=== PATIENT | female | born 1965 | race Caucasian/White ===

== ENCOUNTER 2016-07-11 08:12 | Emergency (ER) | payer OTHER ==
[~2016-07-11] VITALS: Ht 165.1 cm; Wt 68.0 kg
[~2016-07-11 08:12] MED LIST: AZIT500T2 PO; CEPH500C PO; COLA100C2 OR; IBUP400T OR; MUCI600T34 PO; PERC5TAB8 OR; PERC7.5T8 OR; PRED20TA PO; PROA1AER INH; WELBUTRIN PO; [UNRECOGNIZED DRUG - OTHER] PO
--- NOTE | 2016-07-11 09:45 | REP ---
LUMBAR SPINE SERIES: Five views. HISTORY: Injury in a fall. FINDINGS: Lumbar vertebral body heights are preserved. No fracture or collapse is seen. Pedicles and posterior elements appear intact. There is mild degenerative narrowing of the L4-5 disc and there is mild discogenic spurring at L3-4 and L2-3. Facet joint narrowing is present bilaterally at L5-S1. Minimal SI joint spurring is seen bilaterally. Psoas margins are symmetric. The bowel gas pattern is unremarkable. IMPRESSION: No traumatic abnormality noted. Mild degenerative disc and facet changes. Signed by Michael Pimentel MD 07/11/2016 01:56 P
[2016-07-11] MEDS ORDERED: TYLE325T5 PO (10:05)
[2016-07-11 10:12] VITALS: BP 111/67
== END 2016-07-11 10:15 | disposition home or self-care (01) ==
LOC: M ED 10:01
DX: S30.0XXA Contusion of lower back and pelvis, initial encounter (principal); S50.01XA Contusion of right elbow, initial encounter; W10.8XXA Fall (on) (from) other stairs and steps, initial encounter; Y92.099 Unspecified place in other non-institutional residence as the place of occurrence of the external cause; Y93.01 Activity, walking, marching and hiking; Y99.9 Unspecified external cause status

== ENCOUNTER 2016-09-28 20:48 | Inpatient (IN) | payer OTHER ==
[~2016-09-28] VITALS: Ht 165.1 cm; Wt 69.0 kg
[~2016-09-28 20:48] MED LIST changes: +TYLE325T5 PO
[2016-09-28] MEDS ORDERED: PROA1AER INH (21:00)
[2016-09-28] MEDS ORDERED: PRED20TA PO ×2 (21:00→23:50)
[2016-09-28] MEDS ORDERED: CEFU250T PO (21:00)
[2016-09-28] MEDS ORDERED: dexameTHASONE 20 MG/5 ML VIAL (J1100) IV ONE (21:30)
[2016-09-28] MEDS ORDERED: MAG SULF 1GM/100ML (MAG RUN) 1 GM in APPROPRIATE DILUENT 1 EA IV ONE ×4 (21:30)
[2016-09-28] MEDS: LEVALBUTEROL 1.25 MG/0.5 ML CONCENTRATE NEB INH SCH ×3 (21:57→22:04)
[2016-09-28 22:06] LABS: BASO % 0.2 % (0.0-1.0); EOS % 0.3 % (0.0-3.0); LARGE UNSTAINED CELL % 0.5 % (0.0-4.0); LYMPH # 0.4 K/mm3 (1.5-4.5); MEAN CORPUSCULAR HEMOGLOBIN 33.4 pg (27.0-33.0); MEAN CORPUSCULAR HGB CONC 34.9 g/dl (32.0-36.5); MEAN CORPUSCULAR VOLUME 95.8 fl (80.0-96.0); MONO # 0.3 K/mm3 (0.0-0.8); NEUTROPHILS # 7.1 K/mm3 (1.8-7.7); PLATELET COUNT, AUTOMATED 179 k/mm3 (150-450); WHITE BLOOD COUNT 7.8 K/mm3 (4.0-10.0)
[2016-09-28 22:26] LABS: ANION GAP 8 MEQ/L (8-16); BLOOD UREA NITROGEN 7 MG/DL (7-18); CARBON DIOXIDE LEVEL 26 MEQ/L (21-32); CHLORIDE LEVEL 104 MEQ/L (98-107); CREATININE FOR GFR 0.65 MG/DL (0.55-1.02); GLOMERULAR FILTRATION RATE > 60.0 (>51); GLUCOSE, FASTING 121 MG/DL (70-105); POTASSIUM SERUM 3.9 MEQ/L (3.5-5.1); SODIUM LEVEL 138 MEQ/L (136-145)
[2016-09-28 23:08] LABS: ABG BASE EXCESS -3.5 (-2.0-2.0); ABG HCO3 19.8 MEQ/L (22.0-26.0); ABG PARTIAL PRESSURE CO2 31.3 mmHg (35.0-45.0); ABG PARTIAL PRESSURE O2 71.8 mmHg (75.0-100.0); ABG STANDARD HCO3 21.5 MEQ/L (22.0-26.0); ABG TOTAL CO2 20.8 MEQ/L (22.0-29.0)
[2016-09-28] MEDS: IPRATROPIUM 0.5MG/ALBUTEROL 2.5MG INH SOL UD 3ML (DUONEB)(J7620) NEB SCH ×3 (23:27→23:46)
[2016-09-28] MEDS ORDERED: TYLE650T35 PO (23:48)
[2016-09-28] MEDS ORDERED: CEFT500T3 PO (23:50)
[2016-09-29] MEDS ORDERED: IPRATROPIUM 0.5MG/ALBUTEROL 2.5MG INH SOL UD 3ML (DUONEB)(J7620) NEB PRN (00:15)
[2016-09-29] MEDS ORDERED: ALBUTEROL 90 MCG/ACT 8GM HFA INHALER INH PRN (00:15)
[2016-09-29] MEDS ORDERED: ONDANSETRON 4MG/2ML VIAL (J2405) IV PRN (00:30)
[2016-09-29 01:11] VITALS: BP 112/57
--- NOTE | 2016-09-29 01:12 | REP ---
Clinical: Dyspnea . Comparison: 01/13/2016 . Technique: PA and lateral. Findings: The mediastinum and cardiac silhouette are normal. The lung asher demonstrate chronic-appearing changes without acute consolidation, effusion, or pneumothorax. The skeletal structures are intact and normal. Impression: Chronic-appearing changes. No acute cardiopulmonary process. If the patient remains symptomatic consider chest CT for further investigation. Signed by Mic Rodriguez MD 09/29/2016 01:04 A
[2016-09-29] MEDS: IPRATROPIUM 0.5MG/ALBUTEROL 2.5MG INH SOL UD 3ML (DUONEB)(J7620) NEB SCH ×4 (01:58→19:36)
--- NOTE | 2016-09-29 02:19 | HPE ---
DATE OF ADMISSION: 09/29/2016 PRIMARY CARE PROVIDER: Mercedes Sotelo. CHIEF COMPLAINT: Shortness of breath. HISTORY OF PRESENT ILLNESS: The patient is a 51-year-old female who reports over the last 2 weeks she has had progressively worsening dyspnea on exertion with increased cough and increased sputum production. 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 Denies associated chest pain, lightheadedness, dizziness, nausea, vomiting, fever, chills or passing out. She is an active smoker, but she has been unable to smoke for the last 2 days secondary to her shortness of breath. There is 35 pack-year history. The patient was here approximately 1 year ago with almost identical presentation. She states at the time it was suspected she had undiagnosed chronic obstructive pulmonary disease (COPD) and it was recommended upon discharge to have outpatient pulmonary function testing (PFT); however, she admits to me that she never had this done. PAST MEDICAL HISTORY: Chronic neck pain. ALLERGIES: ASPIRIN, tinnitus as a child. PAST SURGICAL HISTORY: 1. Colonoscopy. 2. Herniated disc decompression and fusion of C5-C6. 3. Hysterectomy. HOME MEDICATIONS: - albuterol metered-dose inhaler (MDI) as needed - Valtrex as needed SOCIAL HISTORY: She lives with her daughter, who accompanies her in the emergency room, who is also a smoker and lives with her. She is FULL CODE. She is an active smoker. She denies alcohol or illicit drug use. PHYSICAL EXAMINATION: VITAL SIGNS: Temperature 99.8, pulse 108, respiratory rate 20, blood pressure 100/50, oxygen saturation 90% on 3 liters nasal cannula. GENERAL: She is a middle aged female sitting up in a stretcher using some mild accessory muscles, but is able to speak in complete sentences. She does not appear to be in any acute distress. HEENT: Cranial nerves II-XII are grossly intact. She has moist mucous membranes. She does have pursed lips. CARDIOVASCULAR EXAMINATION: S1, S2, she is tachycardic. No additional heart sounds appreciated. RESPIRATORY EXAMINATION: She has a diffuse end-expiratory wheeze and some transmitted upper airway sounds to go with it. ABDOMINAL EXAMINATION: Bowel sounds are present. The abdomen is soft. EXTREMITIES: No clubbing, cyanosis or edema. LABORATORY STUDIES: WBC 7.8, hemoglobin 14.8, hematocrit 42.3, platelet count 179. Chemistry panel: Sodium 138, potassium 3.9, chloride 104, bicarbonate 26, BUN 7, creatinine 0.6. ABG pH 7.4, pCO2 31.3, pO2 is 71.8. Chest x-ray there is no official read; however, it appears to be hyperinflated with flattened diaphragm, evidence of air trapping. No obvious infiltrates. ASSESSMENT AND PLAN: This is a 51-year-old female with acute hypoxic respiratory failure. 1. Acute hypoxic respiratory failure. Likely to be secondary to undiagnosed chronic obstructive pulmonary disease (COPD). The patient has improved after nebulizer treatments, magnesium and steroids in the emergency room. She will be admitted to the medical/surgical service and will continue with Solu-Medrol 80 mg intravenously (IV) every 6 hours. I will also provide her with DuoNeb standing and as needed and guaifenesin. This was the regimen she did benefit from greatly approximately 1 year ago. I will also check a respiratory PCR panel. I do not have significant suspicion for bacterial pneumonia given there is no fever, no leukocytosis, no radiographic findings suggest this either. for a potential pulmonary embolus (PE), although I feel this is less likely. 2. Deep venous thrombosis (DVT) prophylaxis. The patient will be on Lovenox. DISPOSITION: The patient is admitted to medical/surgical floor to Dr. Montez's service who will continue following the patient at 7 a.m. She can likely be discharged once she is able to ambulate and maintain at greater than on room air. I suspect . She has been advised on tobacco cessation.
[2016-09-29 06:00] VITALS: BP 108/62
[2016-09-29] MEDS: methylPREDNISolone INJ 125 MG/2 ML VIAL (J2930) IV SCH ×2 (06:11→11:30)
[2016-09-29] MEDS: ENOXAPARIN 40 MG/0.4 ML SYRINGE (J1650) SC SCH (11:30)
[2016-09-29] MEDS: guaiFENesin SYRUP 200 MG/10 ML UDC PO PRN ×3 (12:08→23:53)
[2016-09-29 14:00] VITALS: BP 132/78
[2016-09-29 19:36] VITALS: O2SAT 92
[2016-09-29 22:00] VITALS: BP 122/68
[2016-09-29] MEDS: methylPREDNISolone INJ 40 MG/1 ML VIAL (J2920) IV SCH (23:53)
[2016-09-30] MEDS: IPRATROPIUM 0.5MG/ALBUTEROL 2.5MG INH SOL UD 3ML (DUONEB)(J7620) NEB SCH ×4 (00:18→20:45)
[2016-09-30 06:00] VITALS: BP 105/70
[2016-09-30 06:18] LABS: MEAN CORPUSCULAR HEMOGLOBIN 32.7 pg (27.0-33.0); MEAN CORPUSCULAR HGB CONC 33.9 g/dl (32.0-36.5); MEAN CORPUSCULAR VOLUME 96.4 fl (80.0-96.0); RED CELL DISTRIBUTION WIDTH 12.8 % (11.5-14.5); WHITE BLOOD COUNT 14.1 K/mm3 (4.0-10.0)
[2016-09-30 06:37] LABS: ANION GAP 4 MEQ/L (8-16); BLOOD UREA NITROGEN 10 MG/DL (7-18); CALCIUM LEVEL 8.1 MG/DL (8.5-10.1); CARBON DIOXIDE LEVEL 30 MEQ/L (21-32); CHLORIDE LEVEL 107 MEQ/L (98-107); CREATININE FOR GFR 0.62 MG/DL (0.55-1.02); GLOMERULAR FILTRATION RATE > 60.0 (>51); GLUCOSE, FASTING 137 MG/DL (70-105); POTASSIUM SERUM 4.5 MEQ/L (3.5-5.1); SODIUM LEVEL 141 MEQ/L (136-145)
[2016-09-30] MEDS: ENOXAPARIN 40 MG/0.4 ML SYRINGE (J1650) SC SCH (09:05)
[2016-09-30] MEDS: methylPREDNISolone INJ 40 MG/1 ML VIAL (J2920) IV SCH ×2 (11:46→23:48)
--- NOTE | 2016-09-30 12:17 | IPNPDOC ---
Subjective Date Seen The patient was seen on 09/30/16. Subjective Chief Complaint/HPI The patient is a 51-year-old female admitted with a reason for visit of Shortness Of Breath. Events since last encounter Still short of breath, wheezing, working with nursing to wean oxygen and increase activity, tolerating diet, no chest pain Constitutional: Denies: Chills, Fever Pulmonary: Reports: Cough, Denies: Dyspnea Cardiovascular: Denies: Chest Pain, Palpitations Gastrointestinal: Denies: Nausea, Vomiting, Abdominal Pain Objective Physical Examination General Exam: Positive: Alert, Cooperative, No Acute Distress Eye Exam: Negative: Sclera icteric ENT Exam: Positive: Mucous membr. moist/pink Chest Exam: Positive: Wheezing, Diminished (I:E 1:4), Negative: Rales, Rhonchi Heart Exam: Positive: Rate Normal, Regular Rhythm, Normal S1, Normal S2 Extremity Exam: Negative: Edema Assessment /Plan Problems (1) Acute respiratory failure with hypoxia Status: Acute Problem Text: Steroids, nebs. Related to infection with HUMAN RHINOVIRUS/ENTEROVIRUS- no role for antibiotics Improving- still hypoxic with activity - went to 87% on RA with ambulation for a short distance (2) Tobacco use Status: Chronic Plan/VTE VTE Prophylaxis Ordered?: Yes (lovenox) VS, I&O, 24H, Fishbone Vital Signs/I&O Vital Signs Date Time Temp Pulse Resp B/P (MAP) Pulse Ox O2 Delivery O2 Flow Rate FiO2 09/30/16 12:03 90 Room Air 09/30/16 06:00 96.7 81 18 105/70 (82) 1.0 I&O- Last 24 Hours up to 6 AM 09/30/16 06:00 Intake Total 1080 ml Output Total 1200 ml Balance -120 ml Laboratory Data 24H LABS Laboratory Tests 2 09/30/16 05:54: Anion Gap 4L, Glomerular Filtration Rate > 60.0, Blood Urea Nitrogen 10, Creatinine 0.62, Sodium Level 141, Potassium Level 4.5, Chloride Level 107, Carbon Dioxide Level 30, Calcium Level 8.1L CBC/BMP Laboratory Tests 09/30/16 05:54 Red Blood Count 4.50, Mean Corpuscular Volume 96.4 H, Mean Corpuscular Hemoglobin 32.7, Mean Corpuscular Hemoglobin Concent 33.9, Red Cell Distribution Width 12.8, Calcium Level 8.1 L Microbiology Microbiology 09/29/16 Respiratory Virus Panel (PCR) ([facility]) - Final, Complete Human Rhinovirus/Enterovirus LALI GONZALEZ MD Sep 30, 2016 12:17
[2016-09-30 14:00] VITALS: BP 135/68
[2016-09-30 20:45] VITALS: O2SAT 91
[2016-09-30 22:00] VITALS: BP 128/72
[2016-09-30] MEDS: guaiFENesin SYRUP 200 MG/10 ML UDC PO PRN (23:48)
[2016-10-01] MEDS: IPRATROPIUM 0.5MG/ALBUTEROL 2.5MG INH SOL UD 3ML (DUONEB)(J7620) NEB SCH ×2 (00:36→07:29)
[2016-10-01 06:00] VITALS: BP 126/76
[2016-10-01 06:40] LABS: MEAN CORPUSCULAR HGB CONC 33.9 g/dl (32.0-36.5); MEAN CORPUSCULAR VOLUME 97.4 fl (80.0-96.0); RED CELL DISTRIBUTION WIDTH 13.2 % (11.5-14.5)
[2016-10-01 06:44] LABS: ANION GAP 2 MEQ/L (8-16); BLOOD UREA NITROGEN 13 MG/DL (7-18); CALCIUM LEVEL 8.1 MG/DL (8.5-10.1); CARBON DIOXIDE LEVEL 32 MEQ/L (21-32); CHLORIDE LEVEL 106 MEQ/L (98-107); CREATININE FOR GFR 0.61 MG/DL (0.55-1.02); GLOMERULAR FILTRATION RATE > 60.0 (>51); GLUCOSE, FASTING 135 MG/DL (70-105); POTASSIUM SERUM 4.5 MEQ/L (3.5-5.1); SODIUM LEVEL 140 MEQ/L (136-145)
[2016-10-01] MEDS: ENOXAPARIN 40 MG/0.4 ML SYRINGE (J1650) SC SCH (07:57)
[2016-10-01] MEDS: guaiFENesin SYRUP 200 MG/10 ML UDC PO PRN (07:57)
[2016-10-01] MEDS ORDERED: guaiFENesin ER 600 MG TAB PO SCH (09:00)
[2016-10-01] MEDS: methylPREDNISolone INJ 40 MG/1 ML VIAL (J2920) IV SCH (11:00)
[2016-10-01] MEDS ORDERED: GUAI60TA PO (11:36)
[2016-10-01] MEDS ORDERED: PRED10TA PO (11:36)
--- NOTE | 2016-10-01 13:04 | DSES ---
DATE OF ADMISSION: 09/29/2016 DATE OF DISCHARGE: 10/01/2016 No specialists involved in care. No complications during stay. No procedures performed during stay. DISCHARGE DIAGNOSES: 1. Acute respiratory failure with hypoxia. 2. Infection with human rhinovirus and enterovirus. 3. Tobacco use. 4. History of hysterectomy. 5. History of herniated disc decompression and fusion of C5-6. 6. Chronic neck pain. FOLLOWING IS A SUMMARY OF HER HOSPITALIZATION: This is a 51-year-old who presented with 2 weeks of increasing shortness of breath, dyspnea on exertion, cough, and sputum production, had been seen as an outpatient, treated with empiric antibiotics at an urgent care, had not improved, was brought to the hospital for evaluation. Admitted to the hospitalist service. Treated for a presumed but yet undiagnosed chronic obstructive pulmonary disease (COPD) exacerbation most likely related to a viral infection and resulting hypoxia. Improved markedly during the course of her stay and was treated with a steroid taper and oxygen, which was needed with exertion at the beginning of her stay; that was no longer necessary at the time of discharge. She is still coughing and producing sputum. Was given an Acapella device and guaifenesin to assist in sputum production. On the day of discharge, she is feeling well, ambulating without difficulty, feels ready to go home. Temperature is 98, pulse 66, respiratory rate 17, blood pressure 126/76, and 92% on room air. Awake, appropriately interactive, pleasantly conversant. Breathing is symmetrical. I-to-E ratio is 1:3. No accessory muscle use. Speaking in complete sentences. She does have scattered polyphonic wheeze intermittently. Heart is in a regular rate and rhythm, not tachycardic. Abdomen is soft, doughy, nontender. White cell count 11, hemoglobin 13.7, platelets of 195. Creatinine 0.6. DISCHARGE INSTRUCTIONS: Include the following: Followup with Mercedes Sotelo 10/08/2016 at 2:45. Diet and activity as tolerated. Continue with guaifenesin in the form of Mucinex 600 mg by mouth twice daily. Prednisone tapering dose is written. Tylenol as needed for pain. Albuterol two puffs every 4 hours as needed for cough. Discontinue cefuroxime and discontinue previous prednisone dose. Please note, patient may benefit from controller device as an outpatient, but that can be deferred until she has returned to her steady state. Edited: magda 10/02/2016 1032
== END 2016-10-01 12:45 | disposition home or self-care (01) | DRG 152 ==
LOC: M ED 22:24 → M ED INP 09-29 00:16 → M MSPAV 09-29 01:11
PROVIDERS: ADMIT Internal Medicine; ATTEND Internal Medicine
DX: J00 Acute nasopharyngitis [common cold] (principal); J96.01 Acute respiratory failure with hypoxia; B34.1 Enterovirus infection, unspecified; F17.210 Nicotine dependence, cigarettes, uncomplicated; M54.2 Cervicalgia; Z98.1 Arthrodesis status; Z88.6 Allergy status to analgesic agent; Z90.710 Acquired absence of both cervix and uterus; Z79.899 Other long term (current) drug therapy

== ENCOUNTER → 2019-01-08 | Outpatient (CLI) | payer OTHER ==
[~2019-01-08] MED LIST changes: +CEFT500T3 PO; +CEFU1TAB20 PO; +MUCI600T31 PO; -MUCI600T34 PO; +MUCI600T37 PO; +PRED10TA2 PO; -PROA1AER INH; +PROAAER10 INH; +TYLE650T35 PO
--- NOTE | 2019-01-08 15:14 | REP ---
A subtle lucency is seen involving the tip of the acromion process just proximal to the acromioclavicular joint. The AC joint is within normal limits. The glenohumeral relationship is within normal limits. IMPRESSION: Possible acromial fracture. Correlate clinically for point tenderness about the region. Electronically Signed by Dedrick Cook DO 01/08/2019 03:21 P
== END ==
LOC: M LRY 14:25
PROVIDERS: ATTEND Nurse Practitioner Family
DX: S49.91XA Unspecified injury of right shoulder and upper arm, initial encounter (principal); X58.XXXA Exposure to other specified factors, initial encounter; Y92.89 Other specified places as the place of occurrence of the external cause

== ENCOUNTER → 2019-08-11 | Outpatient (CLI) | payer OTHER ==
[~2019-08-11] MED LIST changes: -AZIT500T2 PO; +AZIT500T5 PO
== END ==
LOC: M LABSMTC 09:53
PROVIDERS: ATTEND Family Medicine
DX: Z11.59 Encounter for screening for other viral diseases (principal); Z20.828 Contact with and (suspected) exposure to other viral communicable diseases

== ENCOUNTER 2019-09-15 10:19 | Emergency (ER) | payer OTHER ==
[~2019-09-15] VITALS: Ht 165.1 cm; Wt 70.4 kg
[2019-09-15] MEDS ORDERED: AMPH1CAP16 (10:38)
[2019-09-15] MEDS ORDERED: ADV250INH INH (10:38)
[2019-09-15] MEDS ORDERED: MORPHINE 2 MG/ML 1ML VIAL (J2270) IV ONE (11:00)
[2019-09-15] MEDS ORDERED: NS 1,000 ML IV ONE (11:00)
[2019-09-15] MEDS ORDERED: ONDANSETRON 4MG/2ML VIAL IV ONE (11:00)
[2019-09-15 11:33] LABS: BASO % 0.5 % (0.0-1.0); EOS # 0.1 10^3/uL (0.0-0.5); EOS % 1.4 % (0.0-3.0); HEMATOCRIT 46.3 % (36.0-47.0); LYMPH % 25.2 % (24.0-44.0); MEAN CORPUSCULAR HEMOGLOBIN 32.4 pg (27.0-33.0); MEAN CORPUSCULAR HGB CONC 34.6 g/dl (32.0-36.5); MEAN CORPUSCULAR VOLUME 93.7 fl (80.0-96.0); MONO # 0.5 10^3/uL (0.0-0.8); MONO % 6.4 % (0.0-5.0); NEUTROPHILS # 5.3 10^3/uL (1.5-8.5); NEUTROPHILS % 66.1 % (36.0-66.0); PLATELET COUNT, AUTOMATED 268 10^3/uL (150-450); RED BLOOD COUNT 4.94 10^6/uL (4.00-5.40)
[2019-09-15] MEDS ORDERED: ISOVUE-370 76% 100ML VIAL As Ordered ONE (11:54)
[2019-09-15 11:56] LABS: ALBUMIN 4.1 GM/DL (3.2-5.2); BILIRUBIN,DIRECT 0.1 MG/DL (0.0-0.2); BILIRUBIN,TOTAL 0.3 MG/DL (0.2-1.0); TOTAL PROTEIN 7.5 GM/DL (6.4-8.2)
--- NOTE | 2019-09-15 14:13 | REP ---
CT ABDOMEN AND PELVIS WITH IV CONTRAST: COMPARISON: 01/06/2013 Visualized lung bases demonstrate no infiltrate. The liver, spleen, adrenals, pancreas and kidneys are essentially unremarkable. Probable tiny cyst is seen in the mid left kidney posteriorly. There is mild atherosclerotic calcification of the abdominal aorta without aneurysm. No adenopathy is seen. There is no free air or free fluid. I see no bowel wall thickening. The appendix is normal. Moderate air and fecal material is seen in the transverse and right colon. Mild diffuse distention of small bowel may represent a mild small bowel ileus. The patient has had a prior hysterectomy. Oval cystic structure of the left ovary measures 3.6 cm in maximum diameter. Oval cystic structure of the right ovary measures 3.2 cm in maximum diameter. Urinary bladder is very mildly distended and not well evaluated. IMPRESSION: No adenopathy, free air or free fluid. No bowel wall thickening. No evidence of appendicitis. Moderate fecal material in the transverse and right colon. Mild diffuse distention of small bowel may represent a mild generalized ileus. There are bilateral ovarian cysts present, maximum diameter 3.2 cm on the right and 3.6 cm on the left. Electronically Signed by Leonid Simmons MD 09/15/2019 02:58 P
--- NOTE | 2019-09-15 14:35 | REP ---
PELVIC ULTRASOUND: Real-time sonographic evaluation of the pelvis performed utilizing transabdominal and endovaginal technique. Bladder measures 7.4 x 7.2 x 8.3 cm. The patient has had a prior hysterectomy. The ovaries are not visualized. Tubular fluid-filled structures are seen bilaterally in the pelvis compatible with bilateral hydrosalpinx. Otherwise, no mass or free fluid is seen. IMPRESSION: Status post hysterectomy. Ovaries not visualized. The cystic structures on today's CT abdomen and pelvis in the adnexal regions appear to represent moderate bilateral hydrosalpinx. No evidence of mass or free fluid in the pelvis. Electronically Signed by Leonid Simmons MD 09/15/2019 02:59 P
[2019-09-15 15:33] VITALS: BP 135/77
[2019-09-17 15:12] LABS: HE4 65.1 pmol/L (0.0-105.2)
== END 2019-09-15 15:30 | disposition home or self-care (01) ==
LOC: M ED 10:19
DX: K59.00 Constipation, unspecified (principal); R10.2 Pelvic and perineal pain; N70.11 Chronic salpingitis; J45.909 Unspecified asthma, uncomplicated; F90.9 Attention-deficit hyperactivity disorder, unspecified type; E54 Ascorbic acid deficiency; F17.210 Nicotine dependence, cigarettes, uncomplicated; Z88.6 Allergy status to analgesic agent; Z79.899 Other long term (current) drug therapy; Z79.51 Long term (current) use of inhaled steroids
CPT/HCPCS: 74177; 76830; 76856; 80047; 80076; 81001; 83690; 85025; 86304; 86305; 96374; 96375; 99284; J2270; J2405; Q9967

== ENCOUNTER → 2019-09-20 | Outpatient (REF) | payer OTHER ==
[~2019-09-20] MED LIST changes: +ADV250INH INH; +AMPH1CAP16
[2019-09-20 14:13] LABS: APPEARANCE, URINE CLEAR (CLEAR); BACTERIA, URINE AUTO NEGATIVE (NEGATIVE); BILIRUBIN, URINE AUTO NEGATIVE (NEGATIVE); BLOOD, URINE BLOOD NEGATIVE (NEGATIVE); COLOR, URINE YELLOW (YELLOW); GLUCOSE, URINE (UA) AUTO NEGATIVE (NEGATIVE); KETONE, URINE AUTO NEGATIVE (NEGATIVE); LEUKOCYTE ESTERASE, URINE AUTO NEGATIVE (NEGATIVE); NITRITE, URINE AUTO NEGATIVE (NEGATIVE); PROTEIN, URINE AUTO NEGATIVE (NEGATIVE); RBC, URINE AUTO 1 /HPF (0-3); SPECIFIC GRAVITY URINE AUTO 1.015 (1.002-1.035); SQUAMOUS EPITHELIAL CELL UR AU 0 /HPF (0-6); UROBILINOGEN, URINE AUTO 0.2 mg/dL (0.0-2.0); WBC, URINE AUTO 1 /HPF (0-3)
== END ==
LOC: M LAB REF 13:58
PROVIDERS: ATTEND Obstetrics & Gynecology
DX: N39.0 Urinary tract infection, site not specified (principal)

== ENCOUNTER → 2020-06-08 | Outpatient (CLI) | payer OTHER ==
[~2020-06-08] MED LIST changes: +ACET650T61 PO; -TYLE650T35 PO
== END ==
LOC: M LABSMTC 10:39
PROVIDERS: ATTEND Pediatrics
DX: Z20.822 Contact with and (suspected) exposure to COVID-19 (principal)
CPT/HCPCS: C9803; U0003

== ENCOUNTER → 2022-12-04 | Outpatient (CLI) | payer OTHER | LOC: M RAD 15:49 | PROVIDERS: ATTEND Registered Nurse | DX: F17.210 Nicotine dependence, cigarettes, uncomplicated (principal) ==

== ENCOUNTER → 2024-01-01 | Outpatient (CLI) | payer OTHER ==
[2024-01-01 14:37] LABS: BASO % 0.6 % (0.0-1.0); EOS # 0.2 10^3/uL (0.0-0.5); EOS % 2.2 % (0.0-3.0); HEMATOCRIT 45.8 % (36.0-47.0); HEMOGLOBIN 15.2 g/dl (12.0-15.5); LYMPH # 1.9 10^3/uL (1.5-5.0); LYMPH % 27.9 % (24.0-44.0); MEAN CORPUSCULAR HEMOGLOBIN 31.6 pg (27.0-33.0); MEAN CORPUSCULAR HGB CONC 33.2 g/dl (32.0-36.5); MEAN CORPUSCULAR VOLUME 95.2 fl (80.0-96.0); MONO # 0.5 10^3/uL (0.0-0.8); MONO % 7.8 % (2.0-8.0); NEUTROPHILS # 4.2 10^3/uL (1.5-8.5); NEUTROPHILS % 61.2 % (36.0-66.0); PLATELET COUNT, AUTOMATED 278 10^3/uL (150-450); RED BLOOD COUNT 4.81 10^6/uL (4.00-5.40); WHITE BLOOD COUNT 6.8 10^3/uL (4.0-10.0)
[2024-01-01 14:38] LABS: C REACTIVE PROTEIN QUANTITATIV < 0.40 MG/DL (<1.0)
[2024-01-01 14:40] LABS: ALBUMIN 4.1 G/DL (3.2-5.2); ALKALINE PHOSPHATASE 147 U/L (46-116); ALT/SGPT 28 U/L (7.0-40); AST/SGOT 17 U/L (<34); BILIRUBIN,DIRECT < 0.1 MG/DL (<0.4); BILIRUBIN,TOTAL 0.2 MG/DL (0.3-1.2); BLOOD UREA NITROGEN 14 MG/DL (9-23); CARBON DIOXIDE LEVEL 32 MMOL/L (20-31); CHLORIDE LEVEL 106 MMOL/L (98-107); CHOLESTEROL LEVEL 167 MG/DL (<200); CHOLESTEROL RISK RATIO 3.82 (<5); GLOMERULAR FILTRATION RATE > 60.0 (>51); GLUCOSE, FASTING 99 MG/DL (60-100); HDL CHOLESTEROL 43.7 MG/DL (>40); LDL CHOLESTEROL 103.3 MG/DL (<100); NON-HDL-C 123.3 MG/DL; PHOSPHORUS LEVEL 3.8 MG/DL (2.5-4.9); POTASSIUM SERUM 4.8 MMOL/L (3.5-5.1); SODIUM LEVEL 140 MMOL/L (136-145); TOTAL PROTEIN 7.1 G/DL (5.7-8.2); TRIGLYCERIDES LEVEL 100 MG/DL (<150)
[2024-01-01 14:41] LABS: THYROID STIMULATING HORMONE 2.318 uIU/ML (0.55-4.78)
[2024-01-01 14:42] LABS: FREE T4 0.91 NG/DL (0.89-1.76)
[2024-01-01 15:03] LABS: HEMOGLOBIN A1c 5.5 % (4.0-6.0)
== END ==
LOC: M PLALAB 08:58
PROVIDERS: ATTEND Nurse Practitioner Family
DX: E66.8 Other obesity (principal)

== ENCOUNTER 2024-02-09 20:49 | Emergency (ER) | payer OTHER ==
[~2024-02-09] VITALS: Ht 165.1 cm; Wt 79.3 kg
[2024-02-09] MEDS: COCAINE 4% 4ML NASAL SOLUTION BTL NS ONE (21:50)
[2024-02-09] MEDS: ACETAMINOPHEN *IV* 1,000 MG in IV 1 EA IV ONE (22:50)
[2024-02-10 00:15] VITALS: BP 119/57; TEMP 97.1; O2SAT 96
[2024-02-10] MEDS ORDERED: ADDE25CA PO (06:26)
== END 2024-02-10 00:32 | disposition home or self-care (01) ==
LOC: M ED 20:49
DX: R04.0 Epistaxis (principal); Z88.8 Allergy status to other drugs, medicaments and biological substances; Z79.899 Other long term (current) drug therapy
CPT/HCPCS: 30905; 96374; 99284; C9143; J0131

== ENCOUNTER 2024-02-10 02:26 | Inpatient (IN) | payer OTHER ==
[~2024-02-10] VITALS: Ht 165.1 cm; Wt 78.2 kg
[2024-02-10] MEDS ORDERED: AMINOCAPROIC ACID 5000 MG/20 ML IV ONE (03:00)
[2024-02-10 04:15] LABS: BASO % 0.3 % (0.0-1.0); EOS # 0.1 10^3/uL (0.0-0.5); EOS % 0.9 % (0.0-3.0); HEMATOCRIT 33.2 % (36.0-47.0); HEMOGLOBIN 11.4 g/dl (12.0-15.5); LYMPH # 2.6 10^3/uL (1.5-5.0); MEAN CORPUSCULAR HEMOGLOBIN 31.8 pg (27.0-33.0); MEAN CORPUSCULAR HGB CONC 34.3 g/dl (32.0-36.5); MEAN CORPUSCULAR VOLUME 92.7 fl (80.0-96.0); MONO # 0.6 10^3/uL (0.0-0.8); MONO % 5.7 % (2.0-8.0); NEUTROPHILS # 6.3 10^3/uL (1.5-8.5); NEUTROPHILS % 65.9 % (36.0-66.0); PLATELET COUNT, AUTOMATED 261 10^3/uL (150-450); RED BLOOD COUNT 3.58 10^6/uL (4.00-5.40); WHITE BLOOD COUNT 9.6 10^3/uL (4.0-10.0)
[2024-02-10] MEDS: NS 1,000 ML IV ONE (04:19)
[2024-02-10] MEDS: ACETAMINOPHEN *IV* 1,000 MG in IV 1 EA IV ONE (04:19)
[2024-02-10 04:32] LABS: ALBUMIN 3.3 G/DL (3.2-5.2); ALKALINE PHOSPHATASE 111 U/L (46-116); ALT/SGPT 18 U/L (7.0-40); AST/SGOT 8 U/L (<34); BILIRUBIN,TOTAL 0.2 MG/DL (0.3-1.2); BLOOD UREA NITROGEN 25 MG/DL (9-23); CALCIUM LEVEL 8.5 MG/DL (8.5-10.1); CARBON DIOXIDE LEVEL 25 MMOL/L (20-31); CHLORIDE LEVEL 108 MMOL/L (98-107); CREATININE FOR GFR 0.59 MG/DL (0.55-1.30); GLOMERULAR FILTRATION RATE > 60.0 (>51); GLUCOSE, FASTING 115 MG/DL (60-100); POTASSIUM SERUM 4.3 MMOL/L (3.5-5.1); SODIUM LEVEL 139 MMOL/L (136-145); TOTAL PROTEIN 6.1 G/DL (5.7-8.2)
[2024-02-10 04:40] LABS: INR 1.03; PARTIAL THROMBOPLASTIN TIME 27.9 SECONDS (24.8-34.2); PROTHROMBIN TIME 13.2 SECONDS (12.5-14.5)
[2024-02-10] MEDS: AMINOCAPROIC ACID IV ONE (05:01)
[2024-02-10] MEDS: D5W IV ONE (05:01)
[2024-02-10] MEDS: COCAINE 4% 4ML NASAL SOLUTION BTL NS ONE (05:29)
[2024-02-10] MEDS ORDERED: NICOTINE 14 MG/24 HR TRANSDERMAL TD PRN (05:35)
[2024-02-10] MEDS ORDERED: ADDE25CA PO (06:26)
[2024-02-10] MEDS: D5W IV SCH (08:35)
[2024-02-10] MEDS: AMINOCAPROIC ACID IV SCH (08:35)
[2024-02-10] MEDS ORDERED: AMINOCAPROIC ACID 5000 MG/20 ML IV SCH ×2 (08:45→10:00)
[2024-02-10] MEDS ORDERED: ISOVUE-370 76% 100ML VIAL As Ordered ONE (10:32)
[2024-02-10] MEDS ORDERED: HOME MED LIST COMPLETE! XX SCH (11:05)
[2024-02-10] MEDS ORDERED: fentaNYL 100 MCG/2 ML INJECTION As Ordered ONE (11:47)
[2024-02-10] MEDS ORDERED: MIDAZOLAM INJ 2MG/2ML VIAL As Ordered ONE (11:47)
[2024-02-10] MEDS ORDERED: propofoL 200 MG/20 ML VIAL As Ordered ONE (11:47)
[2024-02-10] MEDS ORDERED: LIDOCAINE 2% 100MG/5ML SDV (FOR ANES.) As Ordered ONE (11:48)
[2024-02-10] MEDS ORDERED: ROCURONIUM BROMIDE 50MG/5ML VIAL As Ordered ONE (11:49)
[2024-02-10] MEDS ORDERED: SUCCINYLCHOLINE 100MG/5ML SYRINGE As Ordered ONE (11:49)
[2024-02-10] MEDS ORDERED: ONDANSETRON 4MG 2ML VIAL As Ordered ONE (11:50)
[2024-02-10] MEDS ORDERED: dexmedeTOMIDine (4MCG/ML)200MCG/50ML BTL (PRECEDEX) As Ordered ONE (11:52)
[2024-02-10] MEDS ORDERED: VASOPRESSIN INJ 20UNITS/ML 1ML VIAL As Ordered ONE (12:39)
[2024-02-10 12:48] LABS: HEMATOCRIT 27.9 % (36.0-47.0); HEMOGLOBIN 9.6 g/dl (12.0-15.5); MEAN CORPUSCULAR HGB CONC 34.4 g/dl (32.0-36.5); PLATELET COUNT, AUTOMATED 225 10^3/uL (150-450); WHITE BLOOD COUNT 7.5 10^3/uL (4.0-10.0)
[2024-02-10] MEDS ORDERED: CALCIUM CHLORIDE 10% 1 GM/10 ML SYR As Ordered ONE (12:48)
[2024-02-10] MEDS ORDERED: PHENYLEPHRINE 10MG/ML 1ML VIAL As Ordered ONE (12:54)
[2024-02-10] MEDS ORDERED: AMPICILLIN SOD IV SCH (13:00)
[2024-02-10] MEDS ORDERED: DEXTROSE 5% IV SCH (13:00)
[2024-02-10] MEDS ORDERED: ADV IV SCH (13:00)
[2024-02-10] MEDS ORDERED: MINI IV SCH (13:00)
[2024-02-10] MEDS ORDERED: SULBACTAM SOD IV SCH (13:00)
[2024-02-10] MEDS ORDERED: SUGAMMADEX SODIUM 500 MG/5 ML VIAL (BRIDION) As Ordered ONE (13:08)
[2024-02-10] MEDS ORDERED: ACETAMINOPHEN 1000MG 100ML IV BAG As Ordered ONE (13:26)
[2024-02-10] MEDS: SILVER NITRATE APPLICATOR (1 = QTY 10) As Ordered ONE (13:27)
[2024-02-10] MEDS: EPINEPHrine 1MG/ML INJ 30ML MD-VIAL As Ordered ONE (13:27)
[2024-02-10] MEDS: BACITRACIN OINTMENT 30GM TUBE As Ordered ONE (13:28)
[2024-02-10] MEDS: LIDOCAINE W/EPINEPHRINE 1% 20ML VIAL As Ordered ONE (13:28)
[2024-02-10] MEDS: ACETAMINOPHEN *IV* 1,000 MG in IV 1 EA IV SCH (13:35)
[2024-02-10] MEDS: AMPICILLIN SOD/SULBACTAM SOD 3 GM in D5W MINI-BAG PLUS 100 ML IV SCH (13:36)
[2024-02-10] MEDS ORDERED: HYDROMORPHONE HCL 0.5 MG/ 0.5 ML SYRINGE IV PRN (14:25)
[2024-02-10] MEDS ORDERED: oxyCODONE 5MG TAB PO PRN (14:25)
[2024-02-10] MEDS ORDERED: LABETALOL 100MG/20ML VIAL As Ordered ONE (14:37)
[2024-02-10] MEDS: fentaNYL 100 MCG/2 ML INJECTION IV PRN (14:41)
[2024-02-10] MEDS: LABETALOL 100MG/20ML VIAL IV PRN (14:42)
[2024-02-10] MEDS: hydrALAZINE 20MG/ML 1ML VIAL IV SCH (15:00)
[2024-02-10] MEDS: NITROGLYCERIN 2% OINT 1 GM *U/D* PKT TOP ONE (15:00)
[2024-02-10] MEDS: METOPROLOL 5 MG/5 ML VIAL IV ONE (15:00)
[2024-02-10 15:58] VITALS: BP_SYST 101; BP_SYST 85; BP_DIAS 51; BP_DIAS 54; TEMP 97.6; O2SAT 95
[2024-02-10 16:49] VITALS: BP 110/53; TEMP 97; O2SAT 98
[2024-02-10 17:27] VITALS: BP 109/54; TEMP 97.2; O2SAT 100
[2024-02-10 18:00] VITALS: BP 139/69; TEMP 97.8; O2SAT 99
[2024-02-10 19:00] VITALS: BP 133/60; TEMP 97.7; O2SAT 99
[2024-02-10 23:51] VITALS: BP 128/57; TEMP 99.2; O2SAT 98
[2024-02-11] VITALS (7 sets, daily range): BP systolic 103–126; BP diastolic 51–69; TEMP 97.7–98.8; O2SAT 96–99
[2024-02-11] MEDS: CHLORASEPTIC SPRAY MT PRN (02:48)
[2024-02-11 08:01] LABS: HEMATOCRIT 24.8 % (36.0-47.0); HEMOGLOBIN 8.2 g/dl (12.0-15.5); MEAN CORPUSCULAR HEMOGLOBIN 31.4 pg (27.0-33.0); MEAN CORPUSCULAR HGB CONC 33.1 g/dl (32.0-36.5); PLATELET COUNT, AUTOMATED 211 10^3/uL (150-450); RED BLOOD COUNT 2.61 10^6/uL (4.00-5.40); WHITE BLOOD COUNT 9.9 10^3/uL (4.0-10.0)
[2024-02-11 08:25] LABS: BLOOD UREA NITROGEN 11 MG/DL (9-23); CALCIUM LEVEL 8.2 MG/DL (8.5-10.1); CARBON DIOXIDE LEVEL 29 MMOL/L (20-31); CHLORIDE LEVEL 112 MMOL/L (98-107); CREATININE FOR GFR 0.57 MG/DL (0.55-1.30); GLOMERULAR FILTRATION RATE > 60.0 (>51); GLUCOSE, FASTING 102 MG/DL (60-100); POTASSIUM SERUM 4.2 MMOL/L (3.5-5.1); SODIUM LEVEL 142 MMOL/L (136-145)
[2024-02-11] MEDS: SODIUM CHLORIDE NASAL 0.65% SPRAY BTL (OCEAN) SCH (09:27)
[2024-02-11] MEDS ORDERED: PERCOCET 5MG/325MG TAB PO PRN (12:50)
[2024-02-11] MEDS: ACETAMINOPHEN 325 MG TAB PO PRN (12:57)
[2024-02-12] MEDS ORDERED: PSEUDOEPHEDRINE 30 MG TAB PO PRN (02:00)
[2024-02-12] MEDS: CETIRIZINE (ZyrTEC) 10 MG TAB PO STA (02:34)
[2024-02-12 03:38] VITALS: BP 131/70; TEMP 98.1; O2SAT 98
[2024-02-12 06:43] LABS: HEMATOCRIT 25.3 % (36.0-47.0); HEMOGLOBIN 8.4 g/dl (12.0-15.5); MEAN CORPUSCULAR HEMOGLOBIN 31.3 pg (27.0-33.0); MEAN CORPUSCULAR HGB CONC 33.2 g/dl (32.0-36.5); MEAN CORPUSCULAR VOLUME 94.4 fl (80.0-96.0); PLATELET COUNT, AUTOMATED 198 10^3/uL (150-450); RED BLOOD COUNT 2.68 10^6/uL (4.00-5.40); WHITE BLOOD COUNT 6.9 10^3/uL (4.0-10.0)
[2024-02-12 07:09] LABS: BLOOD UREA NITROGEN 12 MG/DL (9-23); CALCIUM LEVEL 8.6 MG/DL (8.5-10.1); CARBON DIOXIDE LEVEL 34 MMOL/L (20-31); CHLORIDE LEVEL 109 MMOL/L (98-107); CREATININE FOR GFR 0.62 MG/DL (0.55-1.30); GLOMERULAR FILTRATION RATE > 60.0 (>51); GLUCOSE, FASTING 96 MG/DL (60-100); POTASSIUM SERUM 4.2 MMOL/L (3.5-5.1); SODIUM LEVEL 144 MMOL/L (136-145)
[2024-02-12 08:00] VITALS: BP 120/68; TEMP 97.4; O2SAT 98
[2024-02-12] MEDS ORDERED: NICO14PA TD (08:45)
[2024-02-12] MEDS ORDERED: EQL0.65S NARES (08:45)
[2024-02-12] MEDS ORDERED: AMOX875T2 PO (08:45)
[2024-02-12] MEDS ORDERED: PSEU30TA87 PO (09:19)
== END 2024-02-12 12:03 | disposition home or self-care (01) | DRG 151 ==
LOC: M ED 02:26 → M ED INP 05:28 → M PCU 15:43
PROVIDERS: ADMIT Student in an Organized Health Care Education/Training Program; ATTEND General Practice
PROC: 2Y41X5Z Packing of Nasal Region using Packing Material (ICD-10-PCS; 2024-02-10)
PROC: 093K7ZZ Control Bleeding in Nasal Mucosa and Soft Tissue, Via Natural or Artificial Opening (ICD-10-PCS; principal; 2024-02-10 11:00)
DX: R04.0 Epistaxis (principal); D62 Acute posthemorrhagic anemia; F90.9 Attention-deficit hyperactivity disorder, unspecified type; F17.200 Nicotine dependence, unspecified, uncomplicated; R73.01 Impaired fasting glucose; J34.2 Deviated nasal septum; Z79.899 Other long term (current) drug therapy; Z88.6 Allergy status to analgesic agent; Z98.1 Arthrodesis status

== ENCOUNTER → 2024-02-16 | Outpatient (REF) ==
[~2024-02-16] MED LIST changes: +ADDE25CA PO; +AMOX875T2 PO; +EQL0.65S NARES; +NICO14PA TD; +PSEU30TA87 PO
== END ==
LOC: M PLAIMG 12:13
PROVIDERS: ATTEND Internal Medicine
DX: R52 Pain, unspecified (principal)